=== PATIENT | female | born 1975 | race Caucasian/White ===

== ENCOUNTER 2023-12-06 10:15 | Emergency (ER) | payer OTHER, SELFPAY ==
[2023-12-06 10:17] VITALS: BP 147/99; PULSE 90; RESP 16; TEMP 37; O2SAT 97; BMI 36.6
--- NOTE | 2023-12-06 11:36 | EX.ED.DYSGE1 ---
HPI History of Present Illness Chief Complaint: Fever Informant: patient Narrative Narrative: 48-year-old female presenting to the emergency room stating that she has staph infection of her right hip region. Patient states that she has spent a little over a month in [facility] and states that she has not gotten any medical care. She states that she bonded out. She notes subjective fevers and states that she is having delusions of her cat and places where she knows the cat should not be. She recognizes this as a delusion/hallucination. Patient notes pain over the right hip. She notes some mild shortness of breath sore throat. She states she has 2 dots of the staph infection on her right hip but cannot see them due to obesity. She states she does not have any medical problems that she is treated for. [facility] Medical History TBI (traumatic brain injury) HTN (hypertension) Home Medications ?Medication ?Instructions ?Recorded ?Last Taken ?Type cephalexin 500 mg capsule 500 mg PO Q6 #40 CAPSULES 12/06/23 Unknown Rx ibuprofen 600 mg tablet 600 mg PO Q6H PRN PRN fever or 12/06/23 Unknown Rx pain #20 TABLETS sulfamethoxazole 800 1 tab PO BID #20 TABLETS 12/06/23 Unknown Rx mg-trimethoprim 160 mg tablet Allergy/AdvReac Type Severity Reaction Status Date / Time No Known Allergies Allergy Verified 12/06/23 11:59 Social History Smoking Status: Current every day smoker tobacco type: cigarettes ROS ROS ED Constitutional Constitutional ED: Reports fever(s), subjective and sweats; Denies chills or weight loss Eyes Eyes: Denies change in vision or diplopia ENT ENT ED: Reports sore throat; Denies ear pain or rhinorrhea Cardiovascular Cardiovascular: Denies chest pain, orthopnea, palpitations or racing heartbeat Respiratory/Chest Respiratory/Chest: Reports dyspnea; Denies cough or orthopnea Gastrointestinal Gastrointestinal: Denies abdominal pain, diarrhea, nausea or vomiting Genitourinary Genitourinary ED: Denies dysuria, hematuria or urinary frequency Musculoskeletal Musculoskeletal: Reports other Details: Right hip pain ; Denies arthralgias or myalgias Integumentary Reports abscess and rash Neurologic Neurologic: Denies headache(s) or weakness Psychiatric Psychiatric: Denies anxiety, depression, suicidal ideation or suicidal thoughts Endocrine Endocrinology: Denies polydipsia, polyphagia or polyuria Allergic/Immunologic Allergic/Immunologic ED: Denies mouth swelling, tongue swelling or urticaria EXAM Physical Exam Const Vital Signs: 12/06/23 10:17 12/06/23 10:31 12/06/23 11:58 Temperature 98.6 F 98.9 F Temperature Source Oral Temporal Pulse Rate 90 72 Respiratory Rate 16 16 Respiratory Effort Labored Respiratory Pattern Normal Blood Pressure 147/99 H 132/90 H Blood Pressure Mean 115 104 Pulse Ox 97 94 Oxygen Delivery Method Room Air Room Air 12/06/23 13:06 12/06/23 14:19 Temperature 96.8 F L Temperature Source Temporal Pulse Rate 72 Respiratory Rate 16 16 Respiratory Effort Respiratory Pattern Blood Pressure 127/87 H 132/90 H Blood Pressure Mean 100 104 Pulse Ox 94 96 Oxygen Delivery Method Room Air Positive well nourished, well developed and obese General Appearance ED: well developed Nutritional Appearance: obese HEENT Reports normocephalic, head/scalp atraumatic and moist mucous membranes Eyes PERRL and EOMs intact bilaterally Neck no lymphadenopathy, supple and no JVD Resp normal respiratory effort and clear to auscultation bilaterally Cardio regular rate, regular rhythm and no murmurs GI normal to inspection, nondistended, normoactive bowel sounds and non-tender Palpation: soft Back/Spine no CVA tenderness and normal ROM Extremity Extremity Narrative: Patient has some mild erythema over the right lateral hip region. There is some mild induration of the skin. I do not palpate any fluctuance or pointing abscess. It is proximal and posterior to a old tattoo. There is no significant leg swelling or palpable cords. The calf is nontender. General Extremety ED: Negative for edema General Extremity: Negative for edema Neuro oriented x3 and CN's II-XII intact bilaterally Sensorium / Orientation: alert Motor Exam: strength 5/5 throughout Psych mental status grossly normal Mood & Affect: Negative for depressed or tearful Skin no wounds MDM MDM MDM Narrative Medical decision making narrative: Differential diagnosis includes but not limited to cellulitis abscess septic arthritis sepsis UTI White count 4.5 with no left shift. Lactic acid is normal 0.7 urinalysis is negative. CMP with a glucose of 126. No significant liver dysfunction. My independent or potation of the chest x-ray is no acute process. My independent interpretation of the left hip series is soft tissue swelling. I did perform a bedside ultrasound which does not show any drainable abscess at this time. Patient received IV fluids. She was monitored with no significant change in vital signs. Patient will be discharged home on Bactrim and Keflex. She understands that the cellulitis may coalesce and form an abscess that may require drainage. She is comfortable with this plan. History & Record Review Discussion w/independent historian: Patient Lab Data Attestation: I reviewed the patient's lab results. Labs: Laboratory Results - last 24 hr 12/06/23 12/06/23 12/06/23 10:30 11:38 13:00 WBC 4.5 RBC 4.56 Hgb 14.4 Hct 43.2 MCV 94.7 MCH 31.6 MCHC 33.3 RDW Std Deviation 43.1 RDW Coeff of Isaiah 12.3 Plt Count 132 L MPV 10.3 Immature Gran % (Auto) 0.200 Neut % (Auto) 54.9 Lymph % (Auto) 29.7 Posey % (Auto) 10.1 H Eos % (Auto) 3.8 Baso % (Auto) 1.3 H Absolute Neuts (auto) 2.4 Absolute Lymphs (auto) 1.32 Nucleated RBC % 0 Sodium Cancelled Potassium Cancelled Chloride Cancelled Carbon Dioxide Cancelled Anion Gap Cancelled BUN Cancelled Creatinine Cancelled Estim Creat Clear Calc Est GFR (MDRD) Af Amer Cancelled Est GFR (MDRD) Non-Af Cancelled BUN/Creatinine Ratio Cancelled Glucose Cancelled Lactic Acid 0.7 Calcium Cancelled Total Bilirubin Cancelled Direct Bilirubin Cancelled AST Cancelled ALT Cancelled Alkaline Phosphatase Cancelled Total Protein Cancelled Albumin Cancelled Globulin Cancelled Lipase Cancelled Urine Color Yellow Urine Clarity Sl. Cloudy Urine pH 7.0 Ur Specific Lyons 1.010 Urine Protein Negative Urine Glucose (UA) Normal Urine Ketones 5 H Urine Occult Blood Negative Urine Nitrite Negative Urine Bilirubin Negative Urine Urobilinogen 4 H Ur Leukocyte Esterase 25 H Urine RBC 0 SEEN Urine WBC 0-5 SEEN Ur Squamous Epith Cells 0-5 SEEN Urine Bacteria 0 SEEN Urine Mucus 0 SEEN 12/06/23 13:15 WBC RBC Hgb Hct MCV MCH MCHC RDW Std Deviation RDW Coeff of Isaiah Plt Count MPV Immature Gran % (Auto) Neut % (Auto) Lymph % (Auto) Posey % (Auto) Eos % (Auto) Baso % (Auto) Absolute Neuts (auto) Absolute Lymphs (auto) Nucleated RBC % Sodium 142 Potassium 4.0 Chloride 107 Carbon Dioxide 26.0 Anion Gap 9 BUN 7 Creatinine 0.83 Estim Creat Clear Calc 88.71 Est GFR (MDRD) Af Amer 96 Est GFR (MDRD) Non-Af 79 BUN/Creatinine Ratio 8.4 L Glucose 126 H Lactic Acid Calcium 9.6 Total Bilirubin 0.50 Direct Bilirubin 0.16 AST 43 H ALT 34 Alkaline Phosphatase 54 Total Protein 7.9 Albumin 3.6 Globulin 4.3 H Lipase 33 Urine Color Urine Clarity Urine pH Ur Specific Lyons Urine Protein Urine Glucose (UA) Urine Ketones Urine Occult Blood Urine Nitrite Urine Bilirubin Urine Urobilinogen Ur Leukocyte Esterase Urine RBC Urine WBC Ur Squamous Epith Cells Urine Bacteria Urine Mucus Radiography Diagnostic Testing: Clinical Impression(s) from Imaging Studies Chest X-Ray 12/06/23 11:40 IMPRESSION: Normal x-ray examination of the chest. Electronically Signed: Adrien Ramos MD at 12:52 EDT , Hip/Pelvis X-Ray 12/06/23 12:22 IMPRESSION: Mild degenerative change. Healed left pubic fractures. Soft tissue swelling. Electronically Signed: Adrien Ramos MD at 12:55 EDT , Discharge Plan Triage Chief Complaint: Fever ED Provider: Дмитрий López Dx/Rx/DC Orders Clinical Impression: Cellulitis of hip, right, Acute hip pain Instructions: ED Cellulitis Prescriptions: New cephalexin 500 mg capsule 500 mg PO Q6 Qty: 40 0RF ibuprofen 600 mg tablet 600 mg PO Q6H PRN PRN (Reason: fever or pain) Qty: 20 0RF sulfamethoxazole-trimethoprim 800-160 mg tablet 1 tab PO BID Qty: 20 0RF Primary Care Provider: Care Physician,No Primary Referrals: Care Physician,No Primary [Primary Care Provider] - Print Language: Bengali Disposition Disposition: Home, Self Care Discharge Date/Time: 12/06/23 14:43
--- NOTE | 2023-12-06 11:40 | RAD_ITS ---
STUDY: X-RAY CHEST REASON FOR EXAM: Female, 48 years old. Dyspnea TECHNIQUE: Single AP portable view of the chest. COMPARISON: None. FINDINGS: The lungs are clear and expanded. There is no demonstrated pleural abnormality. Normal size heart. Normal mediastinum and luis alberto. Normal visualized pulmonary arteries. Normal visualized aortic arch and descending thoracic aorta. Normal visualized thoracic spine. Normal visualized ribs, clavicles, and shoulders. There is no demonstrated abnormality of the visualized soft tissue structures of the upper abdomen. RAD/Chest 1 View (Portable) IMPRESSION: Normal x-ray examination of the chest. Electronically Signed: Adrien Ramos MD at 12:52 EDT ,
[2023-12-06 11:53] LABS: Absolute Lymphocyte Count 1.32 X10^3/uL (0.83-4.51); Absolute Neutrophil Count 2.4 X10^3/uL (2.0-7.7); Basophil# 0.06 X10^3/uL; Basophil% 1.3 % (0-1); Eosinophil# 0.17 X10^3/uL; Eosinophils% 3.8 % (0-5); Hematocrit 43.2 % (37-47); Hemoglobin 14.4 g/dL (12.0-15.0); Lymphocyte # 1.32 X10^3/ul (0.83-4.51); Lymphocyte % 29.7 % (19-41); Mean Corp Hgb Conc 33.3 g/dL (32-36); Mean Corpuscular Hgb 31.6 pg (27.0-32.0); Mean Corpuscular Volume 94.7 fL (81-99); Mean Platelet Vol. 10.3 fl (6.2-12.0); Monocyte# 0.45 X10^3/uL; Monocyte% 10.1 % (0-10); NRBC Flagged by Analyzer 0 % (0-5); Neutrophil # 2.44 X10^3/uL (2.7-7.7); Neutrophil % 54.9 % (47-70); Platelet Count 132 K/mm3 (150-450); RBC Distribution Width CV 12.3 % (11.6-14.6); RBC Distribution Width SD 43.1 fl (35.1-43.9); Red Blood Count 4.56 M/mm3 (4.2-5.4); White Blood Count 4.5 K/mm3 (4.4-11.0)
[2023-12-06] MEDS: 0.9% Normal Saline (1000mL) 1,000 ML 1000 ML IV (11:57)
[2023-12-06 11:58] VITALS: BP 132/90; PULSE 72; RESP 16; TEMP 37.2; O2SAT 94
--- NOTE | 2023-12-06 12:22 | RAD_ITS ---
STUDY: X-RAY - PELVIS AND RIGHT HIP REASON FOR EXAM: Female, 48 years old. Infection and pain TECHNIQUE: 3 views of the pelvis and hip. COMPARISON: None. FINDINGS: There is a normal bowel gas pattern. There are multiple calcified phleboliths. There is lateral soft tissue swelling. Normal bilateral iliac wings, sacroiliac joints and visualized sacrum. There are healed left superior and inferior pubic rami fractures. Normal pubic symphysis. Normal bilateral ischial tuberosities. Normal visualized femoral head. Normal acetabulum. There is mild articular joint space narrowing of the hip. There is no acute fracture. RAD/HIP, UNI W/ Pelvis 2-3 Views IMPRESSION: Mild degenerative change. Healed left pubic fractures. Soft tissue swelling. Electronically Signed: Adrien Ramos MD at 12:55 EDT ,
[2023-12-06 12:24] LABS: Lactic Acid 0.7 mmol/L (0.4-1.9)
[2023-12-06 13:06] VITALS: BP 127/87; RESP 16; O2SAT 94
[2023-12-06 13:07] LABS: Bacteria 0 SEEN /hpf (None Seen); Mucous, Urine 0 SEEN /hpf (<or=2+); Red Blood Cells-Urine 0 SEEN /hpf (0-5)
[2023-12-06 13:09] LABS: Color, Urine Yellow (Yellow); Glucose, Dipstick Normal (Normal); Ketone-Dipstick 5 mg/dl (Negative); Leukocyte Esterase-Dipstick 25 /ul (Negative); Nitrite-Dipstick Negative (Negative); Occult Blood-Urine Negative /ul (Negative); Protein-Dipstick Negative (Negative); Urine Bilirubin Dipstick Negative (Negative); Urine Clarity Sl. Cloudy (Clear); Urine Urobilinogen 4 mg/dl (Normal)
[2023-12-06 13:17] LABS: Squamous Epithelial Cells - UA 0-5 SEEN /hpf (5-10); White Blood Cells 0-5 SEEN /hpf (0-5)
[2023-12-06 13:54] LABS: BUN 7 mg/dL (7-18); Chloride 107 mmol/L (98-107); Glucose 126 mg/dL (74-106)
[2023-12-06 13:55] LABS: Alanine Aminotransfer ALT/SGPT 34 U/L (13-56); Albumin, Serum 3.6 g/dL (3.2-5.0); Bilirubin, Direct 0.16 mg/dL (0.00-0.30); Calcium,Total 9.6 mg/dL (8.5-10.1); Lipase 33 U/L (13-75); Sodium Level 142 mmol/L (136-145)
[2023-12-06 13:56] LABS: AST(SGOT) 43 U/L (15-37); Anion Gap 9 (5-15); BUN/Creat Ratio 8.4 RATIO (10-20); Creatinine, Serum 0.83 mg/dL (0.55-1.02); EST Glomerular Filtration Rate 79 mL/min (>60); Est Glom Filt Rate - Afr Amer 96 mL/min (>60); Estimated Creatinine Clearance 88.71 ml/min; Globulin 4.3 g/dL (2.2-4.2); Protein, Total 7.9 g/dL (6.4-8.2)
[2023-12-06 14:15] LABS: Alkaline Phosphatase 54 U/L (45-117)
[2023-12-06 14:19] VITALS: BP 132/90; PULSE 72; RESP 16; TEMP 36; O2SAT 96
== END 2023-12-06 14:43 | disposition home or self-care (01) ==
PROVIDERS: Emergency Provider Emergency Medicine; Visit Provider Emergency Medicine
DX: L03.115 Cellulitis of right lower limb (principal); E66.9 Obesity, unspecified; F17.210 Nicotine dependence, cigarettes, uncomplicated
CPT/HCPCS: 36415; 71045; 73502; 80048; 80076; 81001; 83605; 83690; 85025; 87040; 99283; J7030; A4216